=== PATIENT | male | born 1970 | race Two or more races ===

== ENCOUNTER 2018-09-26 07:22 | Outpatient (CLI) | payer OTHER | END 2018-09-26 07:31 | disposition home or self-care (01) | LOC: RAD 07:22 → MAMO-SONO 08:45 | DX: R31.29 Other microscopic hematuria (principal); R06.02 Shortness of breath ==

== ENCOUNTER 2018-10-24 08:41 | Outpatient (CLI) | payer OTHER | END 2018-10-24 08:56 | disposition home or self-care (01) | LOC: TOM 08:41 | DX: R31.29 Other microscopic hematuria (principal) ==